=== PATIENT | female | born 1940 | race Caucasian/White ===

== ENCOUNTER → 2017-08-31 | Outpatient (CLI) | payer MEDICARE, OTHER, SELFPAY | PROVIDERS: PCP Family Medicine; Referring Provider Family Medicine; Visit Provider Family Medicine | DX: N28.1 Cyst of kidney, acquired (principal); K76.89 Other specified diseases of liver; R91.1 Solitary pulmonary nodule | CPT/HCPCS: 36415; 71260; 76700; 82565; 84520; 93225; 93226; Q9967 ==

== ENCOUNTER → 2018-01-15 10:41 | Outpatient (POV) | payer MEDICARE, OTHER, SELFPAY ==
[2018-01-15 14:10] LABS: T4 (Thyroxine) 9.3 ug/dl (4.7-13.3); Thyroid Stimulating Hormone 1.52 uIU/ml (0.358-3.740)
[2018-01-17 06:32] LABS: Thyroglobulin Level <1.0 IU/mL (0.0-0.9); Thyroid Peroxidase Antibodies 155 IU/mL (0-34)
== END ==
PROVIDERS: Family Provider Family Medicine; PCP Family Medicine; Visit Provider Otolaryngology
DX: E04.1 Nontoxic single thyroid nodule (principal)
CPT/HCPCS: 36415; 84436; 84443; 86376; 86800

== ENCOUNTER → 2018-01-31 09:24 | Outpatient (CLI) | payer MEDICARE, OTHER, SELFPAY ==
--- NOTE | 2018-01-31 09:29 | US_ITS ---
US thyroid HISTORY: Follow-up nodules ITS.REASON: GOITER, HYPOTHYROIDISM ORDERING PHYSICIAN: Hetal Padilla MD PATIENT AGE: 77 years Comparison: None FINDINGS: The right lobe is 4 x 1.4 x 1.6 cm. There is heterogeneous echogenicity. 7 x 3 mm hypoechoic nodule upper pole toward the isthmus unchanged 3 mm cyst lower pole unchanged Heterogeneous decreased echogenicity in the upper pole is not significantly changed. The left lobe is 3.6 x 1.2 x 1.7 cm Heterogeneous area of decreased echogenicity upper pole of the isthmus at 12 x 3 mm unchanged with a cystic area laterally at 4 mm unchanged. Heterogeneous echogenicity central aspect of left lobe unchanged. IMPRESSION: Overall no significant change in the ill-defined areas of decreased echogenicity within both lobes of the thyroid gland. No new abnormalities evident
== END ==
PROVIDERS: Family Provider Family Medicine; PCP Family Medicine; Visit Provider Otolaryngology
DX: E04.9 Nontoxic goiter, unspecified (principal); E03.8 Other specified hypothyroidism
CPT/HCPCS: 76536

== ENCOUNTER → 2018-02-20 10:06 | Outpatient (CLI) | payer MEDICARE, OTHER, SELFPAY ==
--- NOTE | 2018-02-20 10:11 | XR_ITS ---
XR DEXA axial skeleton HISTORY: ITS.REASON: POST MENOPAUSAL ORDERING PHYSICIAN: Anup Osman MD PATIENT AGE: 77 years COMPARISON: 06/15/2015 FINDINGS: The BMD measured at the Right femoral neck is 0.735 g/cm squared with a T score of -2.2. This is considered Osteopenic according to the World Health Organization criteria. Fracture risk is Moderate. Treatment is advised. Lumbar density is increased by 3% and hip density is unchanged IMPRESSION: Osteopenia with moderate fracture risk. Recommend follow-up exam in 2019. Treatment is recommended
--- NOTE | 2018-02-20 10:12 | MM_ITS ---
MM Dig screening mamm BI w/CAD CAD Screening ORDERING PHYSICIAN : Anup Osman MD PATIENT AGE: 78 years GENDER: Female COMPARISON: Digital mammograms March 2017. Film screen mammogram May 2007 INDICATION: Routine screening. Patient with no new complaints. Uses estrate cream . Twice a week Family HISTORY:. Sister with breast cancer. TECHNIQUE: Standard CC and MLO images were obtained. R2 CAD reviewed. FINDINGS: Lower density breast with moderate generalized fatty replacement RIGHT BREAST:Small round density at Central breast. 5 mm size. This is developed since prior studies. Likely a small cyst. Since it is viewed I would suggest ultrasound to confirm probable benign cystic nature. Previous breast cyst is been seen elsewhere as noted on 2006 studies LEFT BREAST:No significant findings follow up one year recommended IMPRESSION: .......... 1.... Right breast: There is a new 5 mm rounded density at the central right breast. Suspect a small cyst but warrant ultrasound to confirm such since new feature 2.. Left breast. No significant new findings.. Follow up one year adequate 3. Also suggest emphasized and encourage screening mammogram, particularly in view of positive family history BI-RADS Category: 0 Need Additional Imaging Evaluaiton RECOMMENDED FOLLOW-UP: IMM - IMMEDIATE FOLLOW-UP RECOMMENDED (A letter has been sent to the patient regarding results of the study.)
--- NOTE | 2018-02-20 10:43 | XR_ITS ---
EXAM: XR cervical spine 5V HISTORY: Neck pain ITS.REASON: UPPER BACK PAIN ORDERING PHYSICIAN: Anup Osman MD PATIENT AGE: 77 years COMPARISON: None FINDINGS: Normal alignment. No fracture or dislocation. No lytic or blastic change. There is degenerative disc disease at C5-C6 and C6-C7 with mild facet hypertrophic change with mild right foraminal narrowing at C3-C4 and C5-C6 and mild left foraminal narrowing at C4-C5 and C5-C6. No fracture or dislocation. No lytic or blastic change. No evidence of cervical rib. IMPRESSION: Degenerative disc disease and facet arthritic change.
--- NOTE | 2018-02-20 10:43 | XR_ITS ---
EXAM: XR thoracic spine 3V HISTORY: Upper back pain ITS.REASON: IPPER BACK PAIN Comparison: None FINDINGS: Mild dextroscoliosis of the thoracic lumbar spine along with mild kyphosis of the upper thoracic spine. No acute fracture, dislocation, lytic, or blastic change. IMPRESSION: Kyphoscoliosis, no acute finding
== END ==
PROVIDERS: Family Provider Family Medicine; PCP Family Medicine; Visit Provider Family Medicine
DX: Z12.31 Encounter for screening mammogram for malignant neoplasm of breast (principal); Z78.0 Asymptomatic menopausal state; M54.6 Pain in thoracic spine
CPT/HCPCS: 72050; 72072; 77067; 77080

== ENCOUNTER → 2018-04-02 14:39 | Outpatient (CLI) | payer MEDICARE, OTHER, SELFPAY ==
--- NOTE | 2018-04-02 14:43 | US_ITS ---
US breast RT complete INDICATION: Follow-up abnormal mammogram ORDERING PHYSICIAN: Anup Osman MD PATIENT AGE: 78 years COMPARISON: 02/20/2018 TECHNIQUE: Ultrasound performed of the right breast FINDINGS: There is a well-circumscribed 4 x 4 mm hypoechoic nodule at the 12:00 region of the right breast near the nipple corresponding to the mammographic abnormality. There is enhanced through transmission of sound with a cyst. Small nodes in the right axilla. IMPRESSION: 4 mm right breast cyst corresponding to mammographic abnormality BI-RADS Category: 2 Benign Finding(s) RECOMMENDED FOLLOW-UP: 1YR - 1 YEAR FOLLOW-UP (A letter has been sent to the patient regarding results of the study.)
== END ==
PROVIDERS: Family Provider Family Medicine; PCP Family Medicine; Visit Provider Family Medicine
DX: R92.8 Other abnormal and inconclusive findings on diagnostic imaging of breast (principal)
CPT/HCPCS: 76641

== ENCOUNTER → 2018-05-20 10:43 | Outpatient (POV) | payer MEDICARE, OTHER, SELFPAY | PROVIDERS: Family Provider Family Medicine; PCP Family Medicine; Visit Provider Nurse Practitioner Acute Care | DX: Z00.00 Encounter for general adult medical examination without abnormal findings (principal) ==

== ENCOUNTER → 2019-02-11 12:48 | Outpatient (CLI) | payer MEDICARE, OTHER, SELFPAY ==
--- NOTE | 2019-02-11 | CA_ITS ---
PROCEDURE: 2-D M-mode and color Doppler study INDICATIONS FOR THE TEST: Chest pain COPD+ Heart Murmur+ Tobacco Smoking Palpitations+ Fatigue+ Syncope Edema Hypertension Diabetes Mellitus Rheumatic Fever SOB BAILEY+Obesity Hyperlipidemia Family History HD+ Additional History PATIENT INFORMATION HEIGHT: 65 WEIGHT: 133 GENDER: Female B/P: 130/62 2-D/M-MODE INTERPRETATION: 2-D MEASUREMENTS OBSERVED VALUES IN CMS Right Ventricular Dimension (RVDd) 1.7 Interventricular Septum (Thickness)(IVsd) 0.9 Left Ventricular Internal Dimensions(LVIDd) 5.4 Left Ventricular Posterior Wall (Thickness)(LVPWd) 0.8 Aortic Root 2.9 Aortic Cusp Separation 2.1 Left Atrial Dimensions (LAD) 3.3 2D 1. Left atrium is mildly enlarged, left ventricle is normal size, there is mild concentric left ventricular hypertrophy, visually estimated ejection fraction 55% with no regional wall motion abnormality. 2. The right atrium and right ventricle are qualitatively mildly enlarged with normal contractility. 3. The aortic, mitral and tricuspid valve leaflets are minimally thickened. 4. The pulmonic valve is poorly visualized. 5. No significant pericardial effusion noted. DOPPLER INTERROGATION: Doppler interrogation of the aortic, mitral and tricuspid valvular presence of mild mitral and tricuspid regurgitation, calculated right ventricular systolic pressure is 44 mmHg consistent with moderate pulmonary hypertension. Grade 1 diastolic dysfunction seen with tissue Doppler evidence of raised left atrial pressure. CONCLUSION: 1. Normal left ventricular size, preserved left ventricular systolic function, visually estimated ejection fraction 55% with no regional wall motion abnormality, grade 1 diastolic dysfunction seen with tissue Doppler evidence of raised left atrial pressure. 2. Mildly enlarged with normal contractility. 3. Mild mitral and tricuspid regurgitation, tricuspid and enteric systolic pressure is 44 mmHg consistent with moderate pulmonary hypertension. 4. No significant pericardial effusion noted.
== END ==
PROVIDERS: PCP Family Medicine; Visit Provider Family Medicine
DX: I51.89 Other ill-defined heart diseases (principal)
CPT/HCPCS: 93306

== ENCOUNTER → 2019-02-27 09:59 | Outpatient (CLI) | payer MEDICARE, OTHER, SELFPAY ==
--- NOTE | 2019-02-27 10:00 | US_ITS ---
US thyroid HISTORY: ITS.REASON: GOITER ORDERING PHYSICIAN: Hetal Padilla MD PATIENT AGE: 79 years Comparison: 01/31/2018. FINDINGS: Right thyroid lobe measures 1.7 x 3.7 x 1.3 cm. Left thyroid lobe measures 1.6 x 3.2 x 1.3 cm. The heterogeneous echogenic appearance of the thyroid gland remains stable. The elongated hypoechoic nodule area along the anterior medial upper left thyroid lobe is stable measuring 1.2 cm in length. The upper anterior right thyroid lobe shows a hypoechoic nodule measuring 7.0 mm. On the prior study this measured approximately 4.1 mm. There is however some difference in measuring technique with slight over estimation on today's study. Isthmus area is stable and unremarkable. Impression: Exam is stable except for possible subtle mild increased size of the right upper thyroid lobe hypoechoic nodular area. The nodule is somewhat ill-defined which could account for some difference in measuring technique and would suggest follow-up thyroid ultrasound in 6-12 months.
--- NOTE | 2019-02-27 10:30 | MM_ITS ---
MM Dig screening mamm BI w/CAD CAD Screening COMPARISON: Digital mammograms 10 03/23/2016 and 02/20/2018 INDICATION: There is a history of breast cancer patient's sister diagnosed at age 60 TECHNIQUE: Standard CC and MLO images were obtained. R2 CAD reviewed. FINDINGS: Scattered fibroglandular densities are seen in both breasts. Again noted is a benign-appearing nodular density central portion right breast. This is shown to be a small benign-appearing cyst on ultrasound the previous year. It is stable and unchanged in size and overall appearance from the previous exam. There is no new or suspicious lesion in either breast and no suspicious microcalcifications. IMPRESSION: Stable exam with no suspicious lesion seen BI-RADS Category: 2 Benign Finding(s) RECOMMENDED FOLLOW-UP: 1YR - 1 YEAR FOLLOW-UP (A letter has been sent to the patient regarding results of the study.)
== END ==
PROVIDERS: PCP Family Medicine; Visit Provider Otolaryngology
DX: Z12.31 Encounter for screening mammogram for malignant neoplasm of breast (principal); E04.9 Nontoxic goiter, unspecified
CPT/HCPCS: 76536; 77067

== ENCOUNTER → 2020-07-02 11:54 | Outpatient (CLI) | payer MEDICARE, OTHER, SELFPAY ==
--- NOTE | 2020-07-02 12:00 | CA_ITS ---
APPROVED REPORT EXAM: Comprehensive 2D, Doppler, and color-flow Echocardiogram Customer Care Representative: Renetta Matthews RDCS Ht: 5 ft 7 in Wt: 133lbs BSA: 1.70 BP: 124/64 mmHg Indications: PHTN,COPD,MURMUR,PALPS,BAILEY 2D Dimensions LVOT 1.70 cm (M/F) 1.5-2.5 M-Mode Dimensions RVDd 2.13 cm (0.9-2.6) LA Diam 2.71 cm (1.9-4.0) LVDd 5.17 cm (3.5-5.7) Ao Diam 3.39 cm (2.0-3.7) LVDs 4.07 cm (3.5-5.7) IVSd 0.72 cm (0.6-1.1) PWd 0.87 cm (0.6-1.1) EF (Teich) 43.00% FS 21.30% EDV (Teich) 127.80 mL ESV (Teich) 72.90 mL LV Diastology E Decel Time 287.00 (160-240 msec) E/A Ratio 0.6 MED E' 4.50 (< 7 cm/sec) E'/MED E' Ratio 10.36 (>14) LAT E' 10.80 (<10 cm/sec) E/LAT E' Ratio 4.31 (>14) Mitral Valve MV E Max [place]. 47.00 (40-130 cm/s) MV A Velocity 75.00 (40-130 cm/s) E/A Ratio 0.62 MV Decel. Time 287.00 (160-240 ms) MV PHT 84.00 ms Tricuspid Valve TR P. Velocity 252.00 cm/s RAP Estimate 10.00 mmHg RVSP 35.40 mmHg Left Ventricle Left atrium is mildly enlarged, left ventricle is normal size, mild concentric left ventricular hypertrophy, visually estimated ejection fraction 55% with no regional wall motion abnormality, grade 1 diastolic dysfunction seen without tissue Doppler evidence of raise left atrial pressure. Right Ventricle Right atrium and right ventricle are normal size and contractility. Aortic Valve Aortic valve is minimally thickened and fibrosed, there is no aortic stenosis or aortic insufficiency. Mitral Valve Mitral valve leaflets are minimally thickened, there is mild mitral regurgitation. Tricuspid Valve Tricuspid valve is grossly normal, there is mild tricuspid regurgitation, calculated right ventricular systolic pressure 33 mmHg. Pulmonic Valve Pulmonic valve is poorly visualized. Great Vessels Aortic root is normal size. Pericardium No significant pericardial effusion noted. Conclusion 1. Mildly enlarged left atrium, normal left ventricular size, mild concentric left ventricular hypertrophy, visually estimated ejection fraction 55% with no regional wall motion abnormality, grade 1 diastolic dysfunction seen without tissue Doppler evidence of raise left atrial pressure. 2. Mild mitral and tricuspid regurgitation, calculated right ventricular systolic pressure 33 mmHg. 3. No significant pericardial effusion noted. Electronically signed by : Jeffery Durant, 07/02/2020 13:20:22
[2020-07-02 12:15] LABS: Blood Urea Nitrogen 14 mg/dl (7-17); Estimated Glomerular Filt Rate 81 ml/min (>60); GFR (African American) 98 ML/MIN (>60)
--- NOTE | 2020-07-02 12:31 | CT_ITS ---
PROCEDURE: CT CHEST WO/W CON CLINCAL INDICATION: LUNG NODULES Follow-up lung nodule COMPARISON: CT W CT CHEST W/ CONTRAST from 08/31/2017 TECHNIQUE: IV Contrast: 75ml Optiray 350 Axial images obtained with sagittal and coronal reformats. All CT scans at the facility use one or more dose reduction, viz: automated exposure control, ma/kV adjustment per patient size (including targeted exams where dose is matched to indication, i.e. head), or iterative reconstruction technique. FINDINGS: No mediastinal or hilar mass or adenopathy. No evidence of aortic aneurysm or dissection or pulmonary embolus. There is minimal ectasia of the aorta at the ductus area. This is not significantly changed. There is a small hiatal hernia. There is evidence of old granulomatous disease. There are scattered bilateral noncalcified pulmonary nodules. These nodules have increased in number in the right upper lobe posteriorly with a somewhat tree in bud pattern. The nodules in this area measure up 2 5 mm. There is some scarring in the lung apices. There is minor thickening in the major fissure superiorly on the left. No effusions or infiltrates. Upper abdominal images show multiple hypodense hepatic lesions the largest in the left hepatic lobe at 9 mm not significantly changed. There is a small hiatal hernia. There is mild kyphosis of the upper thoracic spine with mild thoracic curvature convex right. IMPRESSION: 1. There has been increase in nodular opacities in the right upper lobe posteriorly with a tree in bud pattern. This is nonspecific and could be inflammatory/infectious or neoplastic. 2. Other nonacute findings as described above Dictated by: Castor Hartmann MD 07/03/2020 12:04 Castro Hartmann MD in [place] 07/03/2020 12:04
== END ==
PROVIDERS: PCP Family Medicine; Visit Provider Family Medicine
DX: I27.20 Pulmonary hypertension, unspecified (principal); R91.1 Solitary pulmonary nodule
CPT/HCPCS: 36415; 71270; 82565; 84520; 93306; Q9967

== ENCOUNTER → 2020-07-15 16:21 | Outpatient (CLI) | payer MEDICARE, OTHER, SELFPAY ==
[2020-07-20 15:19] LABS: QuantiFERON-TB Gold Plus Negative (Negative)
[2020-07-20 22:26] LABS: Aspergillus flavus Negative (Neg:<1:1); Aspergillus fumigatus Negative (Neg:<1:1); Aspergillus niger Negative (Neg:<1:1)
[2020-07-21 03:16] LABS: Blastomyces Antibody Negative (Neg:<1:1)
== END ==
PROVIDERS: Visit Provider Internal Medicine Pulmonary Disease
DX: J84.10 Pulmonary fibrosis, unspecified (principal)
CPT/HCPCS: 36415; 86480; 86606; 86612; 86698

== ENCOUNTER → 2020-10-26 14:31 | Outpatient (CLI) | payer MEDICARE, OTHER, SELFPAY | PROVIDERS: PCP Internal Medicine Cardiovascular Disease; Visit Provider Internal Medicine Pulmonary Disease | DX: R91.1 Solitary pulmonary nodule (principal); R93.89 Abnormal findings on diagnostic imaging of other specified body structures; R06.00 Dyspnea, unspecified | CPT/HCPCS: 36415; 87070; 87116; 87186; 87205; 87206 ==

== ENCOUNTER → 2020-10-29 11:39 | Outpatient (CLI) | payer MEDICARE, OTHER, SELFPAY | PROVIDERS: PCP Family Medicine; Visit Provider Internal Medicine Pulmonary Disease | DX: R06.00 Dyspnea, unspecified (principal); R91.1 Solitary pulmonary nodule; R91.8 Other nonspecific abnormal finding of lung field; R93.89 Abnormal findings on diagnostic imaging of other specified body structures ==

== ENCOUNTER → 2020-11-09 07:55 | Outpatient (CLI) | payer MEDICARE, OTHER, SELFPAY | PROVIDERS: PCP Family Medicine; Visit Provider Internal Medicine Pulmonary Disease | DX: R06.00 Dyspnea, unspecified (principal); R91.8 Other nonspecific abnormal finding of lung field; R93.89 Abnormal findings on diagnostic imaging of other specified body structures; R91.1 Solitary pulmonary nodule | CPT/HCPCS: 94060; 94640; 94726; 94729 ==

== ENCOUNTER → 2021-01-26 13:16 | Outpatient (CLI) | payer MEDICARE, OTHER, SELFPAY ==
--- NOTE | 2021-01-26 13:20 | XR_ITS ---
PROCEDURE: XR CHEST 2V CLINICAL HISTORY: cough COMPARISON: CR CXR CHEST(2 VIEWS-NOT PORTABLE) from 03/21/[address] CHEST WO/W CON from 07/02/2020 FINDINGS: The cardiomediastinal silhouette and pulmonary vascularity are within normal limits. No lobar consolidation or collapse. There is a vague nodular opacity in the right upper lobe at the 2nd interspace not significantly changed. Thoracic kyphosis not significantly changed. IMPRESSION: No change with no acute finding. Noncalcified nodular opacity right upper lobe which appears stable Dictated by: Castro Hartmann MD 01/26/2021 13:37 Castro Hartmann MD in [facility] 01/26/2021 13:37
== END ==
PROVIDERS: PCP Family Medicine; Visit Provider Internal Medicine Pulmonary Disease
DX: R05 Cough (principal)
CPT/HCPCS: 71046

== ENCOUNTER → 2021-03-29 08:31 | Outpatient (CLI) | payer MEDICARE, OTHER, SELFPAY ==
[2021-03-29 09:12] LABS: Basophils % 0.3 % (0.1-2.0); Eosinophils # 0.1 K/mm3 (0.0-0.4); Eosinophils % 1.3 % (0.1-12.0); Hematocrit 36.9 % (37.0-47.0); Hemoglobin 11.9 g/dL (12.2-16.2); Lymphocytes % 37.9 % (10-50); Mean Corpuscular HGB Conc 32.1 g/dL (31.8-35.4); Mean Corpuscular Hemoglobin 28.2 pg (27.0-31.2); Mean Corpuscular Volume 87.8 fl (81-99); Mean Platelet Volume 8.3 fl (7.4-10.4); Monocytes # 0.3 K/mm3 (0.1-1.0); Monocytes % 4.8 % (1.7-9.3); Neutrophils % 55.8 % (37.0-80.0); Platelet Count 239 K/mm3 (142-424); Red Cell Distribution Width 12.7 % (11.5-17.5); White Blood Count 5.4 K/mm3 (4.8-10.8)
[2021-03-29 09:58] LABS: Alanine Aminotransferase 23 U/L (12-78); Albumin Level 4.2 g/dl (3.5-5.0); Albumin/Globulin Ratio 1.4 (1.1-1.8); Alkaline Phosphatase 76 U/L (38-126); Anion Gap 11.5 mEq/L (5-15); Aspartate Amino Transferase 28 U/L (14-36); Bilirubin,Total 0.5 mg/dl (0.2-1.3); Blood Urea Nitrogen 16 mg/dl (7-17); Calcium 9.5 mg/dl (8.4-10.2); Carbon Dioxide 29 mmol/L (22.0-30.0); Chloride 107 mmol/L (98-107); Chol/HDL Ratio 3.1 (1-3.5); Cholesterol 198 mg/dl (140-200); Estimated Glomerular Filt Rate 81 ml/min (>60); GFR (African American) 98 ML/MIN (>60); Globulin 3.1 g/dL (1.3-3.2); Glucose 92 mg/dl (74-100); HDL Cholesterol 63 mg/dl (40-60); Potassium 4.5 mmoL/L (3.5-5.1); Sodium 143 mmol/L (136-145); Total Protein,Serum 7.3 g/dl (6.3-8.2); Triglycerides 71 mg/dl (30-150); VLDL Cholesterol 14 mg/dL (0-40)
[2021-03-29 10:08] LABS: Direct LDL Cholesterol 96.92 mg/dL (100-129)
[2021-03-29 10:29] LABS: Thyroid Stimulating Hormone 2.78 uIU/mL (0.465-4.68)
== END ==
PROVIDERS: Visit Provider Family Medicine
DX: E03.9 Hypothyroidism, unspecified (principal); F41.1 Generalized anxiety disorder
CPT/HCPCS: 36415; 80053; 80061; 84443; 85025

== ENCOUNTER → 2021-08-20 15:18 | Outpatient (CLI) | payer MEDICARE, OTHER, SELFPAY | PROVIDERS: PCP Family Medicine; Visit Provider Nurse Practitioner Family | DX: Z20.822 Contact with and (suspected) exposure to COVID-19 (principal) | CPT/HCPCS: C9803; U0003; U0005 ==

== ENCOUNTER → 2022-12-25 08:48 | Outpatient (CLI) | payer MEDICARE, OTHER, SELFPAY ==
--- NOTE | 2022-12-25 08:53 | XR_ITS ---
FINAL REPORT TECHNIQUE: Bone mineral density was calculated of the lumbar spine and hip. CLINICAL HISTORY: osteopenia FINDINGS: Using L1-4, the bone mineral density of the spine is 0.87 g/cm2, corresponding to T-score of -1.5. Using the left hip, the bone mineral density of the femoral neck is 0.70 g/cm2, corresponding to a T-score of -2.0. NOTE: T-score: Standard deviation compared with peak bone mass of young adult mean. *Following the recommendations of the International Society of Bone densitometry, classification of hip BMD is based on the lower of two T-scores; total hip or femoral neck. IMPRESSION: Low bone density. Ten year fracture risk: Major osteoporotic fracture 12% Hip fracture 3.3% Reviewed, Interpreted and Dictated by Gabriele Pendleton III, MD Transcribed by Mariah Rockwell Authenticated and [facility]
== END ==
PROVIDERS: PCP Family Medicine; Visit Provider Family Medicine
DX: M85.89 Other specified disorders of bone density and structure, multiple sites (principal)
CPT/HCPCS: 77080

== ENCOUNTER → 2023-04-24 12:36 | Outpatient (CLI) | payer MEDICARE, OTHER, SELFPAY ==
--- NOTE | 2023-04-24 12:53 | XR_ITS ---
FINAL REPORT CLINICAL HISTORY: Neck pain COMPARISON: None FINDINGS: CERVICAL SPINE 5 views were obtained. There is no acute fracture or malalignment. There is moderate disc space narrowing at C5-6 and C6-7. There is anterior osteophyte formation. The neuroforamen are adequately patent. IMPRESSION: Degenerative change without acute process. Reviewed, Interpreted and Dictated by Jorge Barahona MD Transcribed by Hali Wan Authenticated and [facility]
== END ==
PROVIDERS: PCP Family Medicine; Visit Provider Family Medicine
DX: M54.2 Cervicalgia (principal)
CPT/HCPCS: 72050

== ENCOUNTER → 2023-05-01 08:23 | Outpatient (CLI) | payer MEDICARE, OTHER, SELFPAY ==
[2023-05-01 09:56] LABS: Alanine Aminotransferase 17 U/L (12-78); Albumin Level 4.1 g/dl (3.5-5.0); Albumin/Globulin Ratio 1.2 (1.1-1.8); Alkaline Phosphatase 98 U/L (38-126); Anion Gap 14.5 mEq/L (5-15); Aspartate Amino Transferase 22 U/L (14-36); Bilirubin,Total 0.3 mg/dl (0.2-1.3); Blood Urea Nitrogen 15 mg/dl (7-17); Calcium 9.9 mg/dl (8.4-10.2); Carbon Dioxide 27 mmol/L (22.0-30.0); Chloride 106 mmol/L (98-107); Estimated Glomerular Filt Rate 80 ml/min (>60); GFR (African American) 97 ML/MIN (>60); Globulin 3.5 g/dL (1.3-3.2); Glucose 96 mg/dl (74-100); Potassium 4.5 mmoL/L (3.5-5.1); Sodium 143 mmol/L (136-145); Total Protein,Serum 7.6 g/dl (6.3-8.2)
[2023-05-01 10:12] LABS: T4 (Thyroxine) 9.8 ug/dl (5.53-11.0)
[2023-05-01 10:25] LABS: Thyroid Stimulating Hormone 2.14 uIU/mL (0.465-4.68)
[2023-05-01 11:48] LABS: Cholesterol 196 mg/dl (140-200); HDL Cholesterol 65 mg/dl (40-60); Triglycerides 80 mg/dl (30-150); VLDL Cholesterol 16 mg/dL (0-40)
[2023-05-01 11:51] LABS: Basophils % 0.3 % (0.1-2.0); Eosinophils # 0.1 K/mm3 (0.0-0.4); Eosinophils % 1.6 % (0.1-12.0); Hematocrit 40.2 % (37.0-47.0); Hemoglobin 12.9 g/dL (12.2-16.2); Lymphocytes # 2.5 K/mm3 (0.7-4.5); Lymphocytes % 35.8 % (10-50); Mean Corpuscular Hemoglobin 28.4 pg (27.0-31.2); Mean Corpuscular Volume 88.8 fl (81-99); Mean Platelet Volume 8.6 fl (7.4-10.4); Monocytes # 0.4 K/mm3 (0.1-1.0); Monocytes % 5.9 % (1.7-9.3); Neutrophils % 56.5 % (37.0-80.0); Platelet Count 349 K/mm3 (142-424); Red Blood Count 4.52 M/mm3 (4.20-5.40); Red Cell Distribution Width 13.2 % (11.5-17.5)
[2023-05-01 16:12] LABS: Direct LDL Cholesterol 92.25 mg/dL (100-129)
== END ==
PROVIDERS: PCP Family Medicine; Visit Provider Family Medicine
DX: E03.9 Hypothyroidism, unspecified (principal)
CPT/HCPCS: 36415; 80053; 80061; 84436; 84443; 85025

== ENCOUNTER 2024-01-29 08:50 | Day surgery (SDC) | payer MEDICARE, OTHER, SELFPAY ==
[2024-01-29] MEDS: TETRACAINE 0.5% OPTH SOL 15ML OP (09:57)
[2024-01-29] MEDS: APRACLONIDINE 0.5% OPHTH SOLN 5ML OP (09:58)
[2024-01-29] MEDS: PHENYLEPHRINE 2.5% OPHTH SOLN 2ML OP (09:58)
[2024-01-29] MEDS: TROPICAMIDE 1% OPTH SOLN 2ML OP (09:58)
[2024-01-29 10:07] VITALS: BP 132/71; PULSE 67; RESP 18; O2SAT 98; BMI 19.1
== END 2024-01-29 10:57 | disposition home or self-care (01) ==
PROVIDERS: PCP Family Medicine; Visit Provider Ophthalmology
PROC: (CPT 66821; principal; 2024-01-29 10:00)
DX: H26.492 Other secondary cataract, left eye (principal); Z79.899 Other long term (current) drug therapy
CPT/HCPCS: 66821

== ENCOUNTER 2024-06-18 09:15 | Outpatient (CLI) | payer MEDICARE, OTHER, SELFPAY ==
[2024-06-18 10:37] LABS: Albumin Level 4.5 g/dl (3.5-5.0); Chloride 109 mmol/L (98-107); Potassium 4.4 mmoL/L (3.5-5.1); Sodium 142 mmol/L (136-145)
[2024-06-18 10:39] LABS: Alanine Aminotransferase 18 U/L (12-78); Aspartate Amino Transferase 26 U/L (14-36); Blood Urea Nitrogen 15 mg/dl (7-17); Estimated Glomerular Filt Rate 80 ml/min (>60); GFR (African American) 97 ML/MIN (>60)
[2024-06-18 10:40] LABS: Albumin/Globulin Ratio 1.4 (1.1-1.8); Alkaline Phosphatase 73 U/L (38-126); Anion Gap 10.4 mEq/L (5-15); Bilirubin,Total 0.5 mg/dl (0.2-1.3); Calcium 10.2 mg/dl (8.4-10.2); Carbon Dioxide 27 mmol/L (22.0-30.0); Chol/HDL Ratio 2.8 (1-3.5); Cholesterol 216 mg/dl (140-200); Globulin 3.2 g/dL (1.3-3.2); Glucose 91 mg/dl (74-100); HDL Cholesterol 77 mg/dl (40-60); Total Protein,Serum 7.7 g/dl (6.3-8.2); Triglycerides 59 mg/dl (30-150); VLDL Cholesterol 12 mg/dL (0-40)
[2024-06-18 10:51] LABS: Direct LDL Cholesterol 94.87 mg/dL (100-129)
[2024-06-18 11:11] LABS: Thyroid Stimulating Hormone 2.11 uIU/mL (0.465-4.68)
== END 2024-06-18 23:59 | disposition home or self-care (01) ==
LOC: LAB 09:17
PROVIDERS: PCP Family Medicine; Visit Provider Family Medicine
DX: E03.9 Hypothyroidism, unspecified (principal); Z13.220 Encounter for screening for lipoid disorders; F41.1 Generalized anxiety disorder
CPT/HCPCS: 36415; 80053; 80061; 84443

== ENCOUNTER 2024-08-18 12:48 | Outpatient (CLI) | payer MEDICARE, OTHER, SELFPAY ==
--- NOTE | 2024-08-18 12:53 | US_ITS ---
FINAL REPORT CLINICAL HISTORY: .COLD EXTREMITIES, PAIN IN LEFT LEG COMPARISON: None FINDINGS: LOWER EXTREMITY SEGMENTAL PRESSURE MEASUREMENTS FINDINGS: Pressure indices are as follows: RIGHT LOWER EXTREMITY: Upper thigh: 143 Calf: 153 Ankle, posterior tibial artery: 133 Ankle, dorsalis pedis: 150 Toe: 137 Comments: KARSTEN 1.1 LEFT LOWER EXTREMITY: Upper thigh: 158 Calf: 163 Ankle, posterior tibial artery: 162 Ankle, dorsalis pedis: 155 Toe: 137 Comments: KARSTEN: 1.2 IMPRESSION: Normal bilateral ABIs. Reviewed, Interpreted and Dictated by Lurdes Avina MD Transcribed by America De Authenticated and [facility]
== END 2024-08-18 23:59 | disposition home or self-care (01) ==
LOC: RT 12:49
PROVIDERS: PCP Family Medicine; Visit Provider Physician Assistant
DX: M79.661 Pain in right lower leg (principal); M79.662 Pain in left lower leg
CPT/HCPCS: 93923